=== PATIENT | male | born 1965 | race Asian ===

== ENCOUNTER 2020-11-16 12:37 | Emergency (ER) | payer OTHER ==
[~2020-11-16] VITALS: Ht 165.1 cm; Wt 61.3 kg
[2020-11-16 14:04] VITALS: BP 179/107
[2020-11-16] MEDS ORDERED: DIPH,PERTUSS(ACELL),TET VAC/PF 0.5 ML SYRINGE. VAX IM ONE (14:30)
--- NOTE | 2020-11-16 14:45 | RAD ---
Right hand 3 views. HISTORY: Laceration right third finger 3 views were taken of the right hand. There is soft tissue injury of the third finger. There is no fr acture or acute osseous abnormality. 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 IMPRESSION: 1. Soft tissue injury right third finger. 2. No opaque foreign body. 3. No acute fracture. Electronically signed by: Jose Luis Dhaliwal MD (11/16/2020 2:42 PM) [id number]
[2020-11-16] MEDS ORDERED: CEPH500C PO (14:58)
--- NOTE | 2020-11-16 14:59 | PHYS DOC ---
Past Medical History Past Surgical History: No Surgical History (ALLYSSA AUGUSTIN APRN) General Adult EDM: Chief Complaint: LACERATION/AVULSION HPI: HPI: Patient is a 55 year old male who presents with he got been mowing the grass and went to clean off the blade and the blade cut his right pad of the middle finger off. The nail is intact there is no damage to the nailbed. No bone sh owing. He has full range of motion of the finger. Denies any numbness or tingling. Bleeding is controlled. This happened at 12:00 today. He does need a tetanus shot. He is denying any past medical history. Rating his pain at a 5 out of 10 at this time. (ALLYSSA AUGUSTIN APRN) Review of Systems: Review of Systems: Constitutional: Denies fever or chills. [] Eyes: Denies change in visual acuity. [] HENT: Denies nasal congestion or sore throat. [] Respiratory: Denies cough or shortness of breath. [] Cardiovascular: Denies chest pain or edema. [] GI: Denies abdominal pain, nausea, vomiting, bloody stools or diarrhea. [] : Denies dysuria. [] Musculoskeletal: Denies back pain or joint pain. + Right finger pain [] Integument: Denies rash. + Right finger laceration [] Neurologic: Denies headache, focal weakness or sensory changes. [] Endocrine: Denies polyuria or polydipsia. [] Lymphatic: Denies swollen glands. [] Psychiatric: Denies depression or anxiety. [] (ALLYSSA AUGUSTIN APRN) Heart Score: C/O Chest Pain: No Risk Factors: Risk Factors: DM, Current or recent (<one month) smoker, HTN, HLP, family history of CAD, obesity. Risk Scores: Score 0 - 3: 2.5% MACE over next 6 weeks - Discharge Home Score 4 - 6: 20.3% MACE over next 6 weeks - Admit for Clinical Observation Score 7 - 10: 72.7% MACE over next 6 weeks - Early Invasive Strategies (ALLYSSA AUGUSTIN APRN) Current Medications: Current Medications Medications (Trade) Dose Ordered Sig/Ny Start Time Stop Time Status Last Admin Dose Admin Diphtheria/ Tetanus/Acell Pertussis (ADACEL TDap SYRINGE) 0.5 ml ONCE ONCE 11/16/20 14:30 11/16/20 14:31 DC (ALLYSSA AUGUSTIN STEM TEACHER) Allergies: Allergies: Allergies Coded Allergies Type Severity Reaction Last Updated Verified No Known Drug Allergies 11/16/20 No (ALLYSSA AUGUSTIN APRN) Physical Exam: PE: Constitutional: Well developed, well nourished, no acute distress, non-toxic appearance. [] HENT: Normocephalic, atraumatic, bilateral external ears normal, oropharynx moist, no oral exudates, nose normal. [] Eyes: PERRLA, EOMI, conjunctiva normal, no discharge. [] Neck: Normal range of motion, no tenderness, supple, no stridor. [] Cardiovascular:Heart rate regular rhythm, no murmur [] Lungs & Thorax: Bilateral breath sounds clear to auscultation [] Abdomen: Bowel sounds normal, soft, no tenderness, no masses, no pulsatile masses. [] Skin: Warm, dry, no erythema, no rash. + Right middle pad of finger is cut off. [] Back: No tenderness, no CVA tenderness. [] Extremities: Right middle finger pad tenderness, no cyanosis, no clubbing, ROM intact, no edema. [] Neurologic: Alert and oriented X 3, normal motor function, normal sensory function, no focal deficits noted. [] Psychologic: Affect normal, judgement normal, mood normal. [] (ALLYSSA AUGUSTIN APRN) Current Patient Data: Vital Signs: Vital Signs Date Time Temp Pulse Resp B/P (MAP) Pulse Ox O2 Delivery O2 Flow Rate FiO2 11/16/20 14:04 98.3 87 16 179/107 100 Room Air 98.3 (ALLYSSA AUGUSTIN APRN) EKG: EKG: [] (ALLYSSA AUGUSTIN APRN) Radiology/Procedures: Radiology/Procedures: [] Impression: [facility] [address] [place] [address] IMAGING REPORT Signed PATIENT: CLARY ACOSTA ACCOUNT: [id number] : 1965 LOCATION: ER AGE: 55 SEX: M EXAM STATUS: REG ER ORD. PHYSICIAN: ALLYSSA AUGUSTIN APRN REASON: MIDDLE PAD OF FINGER CUT OFF PROCEDURE: HAND RIGHT 3V Right hand 3 views. HISTORY: Laceration right third finger 3 views were taken of the right hand. There is soft tissue injury of the third finger. There is no fracture or acute osseous abnormality. 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 IMPRESSION: 1. Soft tissue injury right third finger. 2. No opaque foreign body. 3. No acute fracture. Electronically signed by: Jose Luis Dhaliwal MD (11/16/2020 2:42 PM) [id number] DICTATED and SIGNED BY: JOSE LUIS DHALIWAL MD DATE: 11/16/20 [id number] (ALLYSSA AUGUSTIN APRN) Course & Med Decision Making: Course & Med Decision Making Pertinent Labs and Imaging studies reviewed. (See chart for details) See HPI. Alert and oriented x4. Ambulatory steady gait. Skin pink warm and dry. Radial pulses are present. Cap refills less than 2 seconds. Bleeding controlled. Avulsion laceration is cleaned with saline and chlorhexidine. No deformity. No joint laxity. No swelling. Full range of motion of all joints to the finger. No damage to nail bed. Wound is wrapped with nonstick and Coban. [] (ALLYSSA AUGUSTIN APRN) Dragon Disclaimer: Dragon Disclaimer: This electronic medical record was generated, in whole or in part, using a voice recognition dictation system. (ALLYSSA AUGUSTIN APRN) Departure Departure Impression: Primary Impression: Avulsion, finger tip Qualified Codes: S61.209A - Unspecified open wound of unspecified finger without damage to nail, initial encounter Disposition: HOME / SELF CARE / HOMELESS Condition: STABLE Referrals: UNKNOWN PCP NAME (PCP) Patient Instructions: Deep Skin Avulsion, Finger Avulsion Additional Instructions: Follow-up with primary care provider. Take ibuprofen or Tylenol for any pain. Take antibiotic. Keep the area clean and covered. Use antibiotic ointment to the area. Change the dressing daily. For signs of infection such as drainage, swelling, increased redness. Scripts Cephalexin (KEFLEX) 500 Mg Capsule 1 CAP PO TID, #30 CAP Prov: ALLYSSA AUGUSTIN APRN 11/16/20 Attending Signature Attending Signature I have reviewed the PA/ART SALES CONSULTANT's note and plan of care. I was available for consultation as needed during the patient's visit in the emergency department. I agree with the clinical impression, plan, and disposition. (BECKY WITT DO) ALLYSSA AUGUSTIN APRN Nov 16, 2020 14:59 BECKY WITT DO Nov 16, 2020 19:04
[2020-11-16] MEDS ORDERED: NEOMY/BACITR/POLYMYXIN OINT PACKET. TP ONE (15:00)
== END 2020-11-16 17:28 | disposition home or self-care (01) ==
LOC: ER 12:37
DX: S61.302A Unspecified open wound of right middle finger with damage to nail, initial encounter (principal); Y28.8XXA Contact with other sharp object, undetermined intent, initial encounter; Y93.89 Activity, other specified; Y92.89 Other specified places as the place of occurrence of the external cause; Y99.8 Other external cause status
CPT/HCPCS: 73130; 90471; 90715; 99283-25